=== PATIENT | female | born 1945 | race Caucasian/White ===

== ENCOUNTER 2017-02-01 13:09 | Outpatient (CLI) | payer MEDICARE, BC ==
[~2017-02-01] VITALS: Ht 172.7 cm; Wt 75.0 kg
[~2017-02-01 13:09] MED LIST: ASPIRIN 32325 MG/TAB PO; ASPIRIN E.C. 8181 MG PO; BYSTOLIC5 MG PO; CALCIUM1 CAP PO; CALCIUM300 MG PO; CARDIZEM CD 24240 MG PO; CARDIZEM LA120 MG PO; CARDIZEM120 MG PO; CENTRUM SILVER1 CTB PO; LOPRESSOR 225 MG/TAB PO; MALOXICAM; METROGEL GEL45 GM TP; MOBIC 7.5MG7.5 MG PO; MULTI VITAMINS1 TAB PO; NORCO 325 MG-51 TAB PO; TAMBOCOR150 MG PO; TRAVATAN Z 5 ML5 ML OU; VITAMIN C500 MG PO; VITAMIN E100 I3 PO
[2017-02-01 13:51] LABS: HEMATOCRIT 35.4 % (37.0-47.0); HEMOGLOBIN 12.1 g/dl (12.5-16.0); MEAN CELL VOLUME 95 fl (80.0-100.0); MEAN CORPUSCULAR HEMOGLOBIN 32 pg (27.0-31.0); MEAN CORPUSCULAR HGB CONC 34 g/dl (33.0-37.0); MEAN PLATELET VOLUME 8.8 fl (7.4-10.4); PLATELET COUNT 205 K/mm3 (130-400); RED BLOOD COUNT 3.74 M/mm3 (4.10-5.30); REDCELL DISTRIBUTION WIDTH-CV 12.1 % (11.5-14.5)
[2017-02-01 13:55] VITALS: BP 133/53; PULSE 72; TEMP 98.1
[2017-02-01] MEDS ORDERED: CALTRATE-600 W600 MG PO (14:26)
[2017-02-01] MEDS ORDERED: FISH OIL 500 M1 EAC1 PO (14:27)
[2017-02-01] MEDS ORDERED: ASPIRIN 32325 MG/TAB PO (14:28)
[2017-02-01] MEDS ORDERED: RYTHMOL300 MG PO (14:29)
[2017-02-01 15:54] VITALS: BP 137/65; PULSE 67
== END 2017-02-01 15:55 | disposition home or self-care (01) ==
LOC: COL.CAR 13:09
PROVIDERS: Internal Medicine Interventional Cardiology
DX: I48.91 Unspecified atrial fibrillation (principal); R00.2 Palpitations
CPT/HCPCS: C1764

== ENCOUNTER → 2017-07-15 | Outpatient (CLI) | payer MEDICARE, BC ==
[~2017-07-15] MED LIST changes: +CALTRATE-600 W600 MG PO; +FISH OIL 500 M1 EAC1 PO; +RYTHMOL300 MG PO
== END ==
LOC: MC.RAD 14:12
DX: Z12.31 Encounter for screening mammogram for malignant neoplasm of breast (principal)

== ENCOUNTER 2017-10-17 21:38 | Emergency (ER) | payer MEDICARE, BC ==
[~2017-10-17] VITALS: Ht 172.7 cm; Wt 77.3 kg
[2017-10-17 21:40] VITALS: TEMP 98.6
[2017-10-17 23:03] LABS: BASO % 0.1 % (0.0-2.0); EOS # 0.1 (0.0-0.7); GRAN # 7.2 (1.4-6.5); GRAN % 78.5 % (42.2-75.2); HEMATOCRIT 37.8 % (37.0-47.0); HEMOGLOBIN 13.1 g/dl (12.5-16.0); LYMPH # 1.4 (1.2-3.4); LYMPH % 15.1 % (20.0-51.0); MEAN CELL VOLUME 95 fl (80.0-100.0); MEAN CORPUSCULAR HEMOGLOBIN 33 pg (27.0-31.0); MEAN CORPUSCULAR HGB CONC 35 g/dl (33.0-37.0); MEAN PLATELET VOLUME 8.7 fl (7.4-10.4); MONO # 0.5 (0.1-0.6); MONO % 5.1 % (1.7-9.3); PLATELET COUNT 257 K/mm3 (130-400); RED BLOOD COUNT 3.98 M/mm3 (4.10-5.30); REDCELL DISTRIBUTION WIDTH-CV 12.2 % (11.5-14.5)
[2017-10-17 23:09] LABS: INR 1.3 (0.8-3.0); PROTHROMBIN TIME 15.3 SECONDS (9.7-12.8)
[2017-10-17 23:12] LABS: PARTIAL THROMBOPLASTIN TIME 31.4 SECONDS (26.0-37.0)
[2017-10-17 23:19] LABS: ALBUMIN 4.3 gm/dL (3.5-5.0); BILIRUBIN,TOTAL 0.5 mg/dL (0.0-1.0); CALCIUM 8.9 mg/dL (8.4-10.2); CREATININE, serum 0.81 mg/dL (0.52-1.25); MAGNESIUM 2.4 mg/dL (1.6-2.3); PHOSPHOROUS 3.6 mg/dL (2.5-4.5); POTASSIUM 4.2 mmol/L (3.4-5.0)
[2017-10-18 00:20] VITALS: BP 117/59; PULSE 64
== END 2017-10-18 00:20 | disposition home or self-care (01) ==
LOC: COL.ER 21:38
PROVIDERS: Emergency Medicine
DX: I48.91 Unspecified atrial fibrillation (principal); Z79.82 Long term (current) use of aspirin

== ENCOUNTER 2017-10-26 19:05 | Observation (INO) | payer MEDICARE, BC ==
[~2017-10-26] VITALS: Ht 172.7 cm; Wt 77.3 kg
[2017-10-26 19:34] LABS: BASO % 0.2 % (0.0-2.0); EOS # 0.1 (0.0-0.7); EOS % 1.5 % (0-4.0); GRAN # 3.6 (1.4-6.5); GRAN % 66.6 % (42.2-75.2); HEMATOCRIT 36.4 % (37.0-47.0); HEMOGLOBIN 12.6 g/dl (12.5-16.0); LYMPH # 1.4 (1.2-3.4); LYMPH % 25.4 % (20.0-51.0); MEAN CELL VOLUME 96 fl (80.0-100.0); MEAN CORPUSCULAR HEMOGLOBIN 33 pg (27.0-31.0); MEAN CORPUSCULAR HGB CONC 35 g/dl (33.0-37.0); MEAN PLATELET VOLUME 8.6 fl (7.4-10.4); MONO # 0.3 (0.1-0.6); MONO % 5.9 % (1.7-9.3); PLATELET COUNT 244 K/mm3 (130-400); REDCELL DISTRIBUTION WIDTH-CV 12.6 % (11.5-14.5)
[2017-10-26 19:37] LABS: INR 1.2 (0.8-3.0); PROTHROMBIN TIME 13.4 SECONDS (9.7-12.8)
[2017-10-26 19:43] LABS: ALANINE AMINOTRANSFERASE 36 U/L (9-52); ALKALINE PHOSPHATASE 94 U/L (50-136); ANION GAP 14 mmol/L (7-16); AST,SGOT 19 U/L (15-37); BILIRUBIN,TOTAL 0.4 mg/dL (0.0-1.0); BLOOD UREA NITROGEN 26 mg/dL (7-17); CARBON DIOXIDE 22 mmol/L (22-30); CHLORIDE 105 mmol/L (98-107); GLUCOSE 104 mg/dL (74-106); POTASSIUM 3.9 mmol/L (3.4-5.0); SODIUM 141 mmol/L (137-145); TOTAL PROTEIN 6.8 gm/dL (6.4-8.2)
[2017-10-26 19:56] LABS: TROPONIN-I < 0.012 ng/mL (0.000-0.034)
[2017-10-26] MEDS ORDERED: ELIQUIS 5MG PO (21:09)
[2017-10-26] MEDS ORDERED: PROTONIX20 MG (21:14)
[2017-10-26] MEDS ORDERED: CARAFATE 1GM1 G (21:16)
[2017-10-26 21:31] VITALS: BP 132/59; PULSE 84; TEMP 98.3
[2017-10-26 21:35] VITALS: BP 132/59; PULSE 84; TEMP 98.3
[2017-10-26 23:33] VITALS: BP 115/42; PULSE 86; TEMP 98.3
[2017-10-27 04:31] VITALS: BP 130/58; PULSE 87; TEMP 98.2
[2017-10-27 11:32] VITALS: BP 111/59; PULSE 83; TEMP 98.2
[2017-10-27 15:25] VITALS: BP 113/50; PULSE 80; TEMP 97.8
[2017-10-27 19:35] VITALS: BP 110/47; PULSE 82; TEMP 97.5
[2017-10-28 00:17] VITALS: BP 124/63; PULSE 81; TEMP 97.4
[2017-10-28 04:35] VITALS: BP 119/51; PULSE 80; TEMP 97.5
[2017-10-28 07:55] VITALS: BP 115/55; PULSE 81; TEMP 97.9
== END 2017-10-28 11:00 | disposition home or self-care (01) ==
LOC: COL.ER 19:05 → MEDICAL 19:59
PROVIDERS: Emergency Medicine
DX: I49.5 Sick sinus syndrome (principal); I48.0 Paroxysmal atrial fibrillation; I47.1 Supraventricular tachycardia; Z79.01 Long term (current) use of anticoagulants; Z88.6 Allergy status to analgesic agent; Z88.8 Allergy status to other drugs, medicaments and biological substances
CPT/HCPCS: C1785; C1894; C1898; G0378; J0690; J2250; J3010; J7030

== ENCOUNTER → 2018-01-04 | Outpatient (CLI) | payer MEDICARE, BC ==
[~2018-01-04] MED LIST changes: +CARAFATE 1GM1 G; +ELIQUIS 5MG PO; +PROTONIX20 MG
== END ==
LOC: COL.PUL 12:57
DX: I48.0 Paroxysmal atrial fibrillation (principal); Z79.899 Other long term (current) drug therapy

== ENCOUNTER 2018-05-01 13:15 | Emergency (ER) | payer MEDICARE, BC ==
[~2018-05-01] VITALS: Ht 172.7 cm; Wt 72.3 kg
[2018-05-01 13:29] VITALS: TEMP 98.5
[2018-05-01 14:49] VITALS: BP 119/61; PULSE 72
== END 2018-05-01 14:56 | disposition home or self-care (01) ==
LOC: COL.ER 13:15
DX: S40.022A Contusion of left upper arm, initial encounter (principal); S00.83XA Contusion of other part of head, initial encounter; S80.212A Abrasion, left knee, initial encounter; S00.81XA Abrasion of other part of head, initial encounter; I48.91 Unspecified atrial fibrillation; Z95.0 Presence of cardiac pacemaker; Z79.01 Long term (current) use of anticoagulants; W01.0XXA Fall on same level from slipping, tripping and stumbling without subsequent striking against object, initial encounter

== ENCOUNTER → 2018-10-02 | Outpatient (CLI) | payer MEDICARE, BC | LOC: MC.RAD 11:40 | DX: Z12.31 Encounter for screening mammogram for malignant neoplasm of breast (principal) ==

== ENCOUNTER 2019-01-12 08:45 | Outpatient (RCR) | payer MEDICARE, BC | END 2019-02-06 | LOC: WSPT | DX: M25.561 Pain in right knee (principal); G89.29 Other chronic pain ==

== ENCOUNTER 2019-02-19 08:00 | Outpatient (RCR) | payer MEDICARE, BC | END 2019-05-22 | disposition still patient (30) | LOC: WSPT | DX: M25.561 Pain in right knee (principal) ==

== ENCOUNTER → 2019-10-09 | Outpatient (CLI) | payer MEDICARE, BC | LOC: MC.RAD 10:07 | DX: Z12.31 Encounter for screening mammogram for malignant neoplasm of breast (principal); Z95.0 Presence of cardiac pacemaker ==

== ENCOUNTER → 2020-11-12 | Outpatient (CLI) | payer MEDICARE, BC | LOC: MC.RAD 14:05 | DX: Z12.31 Encounter for screening mammogram for malignant neoplasm of breast (principal); Z95.0 Presence of cardiac pacemaker ==

== ENCOUNTER 2021-07-29 21:41 | Day surgery (SDC) | payer MEDICARE, BC ==
[~2021-07-29] VITALS: Ht 172.7 cm; Wt 75.0 kg
[~2021-07-29 21:41] MED LIST changes: +CARDIZEM CD 12120 MG PO; -CARDIZEM CD 24240 MG PO
[2021-07-29 22:41] LABS: BASO % 0.2 % (0.0-2.0); EOS # 0.1 K/mm3 (0.0-0.7); GRAN # 3.9 K/mm3 (1.4-6.5); HEMATOCRIT 37.8 % (37.0-47.0); HEMOGLOBIN 12.8 g/dl (12.5-16.0); LYMPH # 0.8 K/mm3 (1.2-3.4); LYMPH % 15.7 % (20.0-51.0); MEAN CELL VOLUME 92 fl (80.0-100.0); MEAN CORPUSCULAR HEMOGLOBIN 31 pg (27-31); MEAN CORPUSCULAR HGB CONC 34 g/dl (33.0-37.0); MEAN PLATELET VOLUME 9.2 fl (7.4-10.4); MONO # 0.3 K/mm3 (0.1-0.6); MONO % 5.7 % (1.7-9.3); PLATELET COUNT 211 K/mm3 (130-400); RED BLOOD COUNT 4.11 M/mm3 (4.10-5.30); REDCELL DISTRIBUTION WIDTH-CV 12.8 % (11.5-14.5)
[2021-07-29 22:57] LABS: ALANINE AMINOTRANSFERASE 18 U/L (0-55); ALBUMIN 4.1 gm/dL (3.4-4.8); ALKALINE PHOSPHATASE 85 U/L (40-150); ANION GAP 15 mmol/L (7-16); AST,SGOT 27 U/L (5-34); BILIRUBIN,TOTAL 0.6 mg/dL (0.2-1.2); BLOOD UREA NITROGEN 21 mg/dL (10-20); CALCIUM 9.1 mg/dL (8.4-10.2); CARBON DIOXIDE 19 mmol/L (23-31); CHLORIDE 108 mmol/L (98-107); CREATININE, serum 0.79 mg/dL (0.57-1.11); GLUCOSE 114 mg/dL (70-99); LIPASE 18 U/L (8-78); POTASSIUM 4.2 mmol/L (3.5-4.5); SODIUM 142 mmol/L (136-145); TOTAL PROTEIN 6.9 gm/dL (6.2-8.1)
[2021-07-29 23:03] LABS: TROPONIN-I < 0.010 ng/mL (0.00-0.033)
[2021-07-30] MEDS ORDERED: SYNTHROID0.05 MG/TA PO (08:23)
[2021-07-30] MEDS ORDERED: LYRICA 50MG CAP50 MG PO (08:23)
[2021-07-30 11:10] VITALS: BP 105/83; PULSE 78; TEMP 98
[2021-07-30 11:25] VITALS: BP 134/94; PULSE 83
[2021-07-30 11:40] VITALS: BP 119/46; PULSE 64
[2021-07-30 11:45] VITALS: BP 112/54; PULSE 69
--- NOTE | 2021-07-30 12:28 | NUR ---
1110 PATIENT ARRIVES TO [facility] 1 VIA CART. VSS. REPORT AND CARE OF PATIENT RECEIVED FROM ALEXIA HERRERA. PATIENT'S BRPOUGHT BACK TO [place]. PATIENT REQUESTED GRAPE JUICE AND JELLO. 1125 PATIENT TOLERATED PO WELL. DENIES COMPLAINT. REPORTS THAT SORE THROAT IS IMPROVING. DENIES COMPLAINT. VSS. 1140 PATIENT ALERT. DENIES COMPLAINT. PATIENT INSTRUCTIONS AND DISCHARGE INSTRUCTIONS GIVEN TO PATIENT AND PATIENT'S SPOUSE IN WRITING AND VERBALLY. BOTH VERBALIZED UNDERSTANDING. QUESTIONS INVITED AND ANSWERED. 1145 IV TO R AC D/C'D. TOLERATED WELL. CATH INTACT. 1207 PATIENT DISCHARGED. TO POV VIA WHEELCHAIR WITH SPOUSE.
[2021-08-03] MEDS ORDERED: PRILOSEC 20MG20 MG PO (14:09)
== END 2021-07-30 12:32 | disposition home or self-care (01) ==
LOC: COL.ER 21:41 → SDCO 07-30 12:31
PROVIDERS: Emergency Medicine
DX: T18.128A Food in esophagus causing other injury, initial encounter (principal); I48.91 Unspecified atrial fibrillation; I47.1 Supraventricular tachycardia; Z79.890 Hormone replacement therapy; Z79.899 Other long term (current) drug therapy; Z79.01 Long term (current) use of anticoagulants
CPT/HCPCS: J0330; J2060; J2405; J2704; J3010; J7030

== ENCOUNTER → 2021-08-12 | Outpatient (CLI) | payer MEDICARE, BC ==
[~2021-08-12] MED LIST changes: +LYRICA 50MG CAP50 MG PO; +PRILOSEC 20MG20 MG PO; +SYNTHROID0.05 MG/TA PO
== END ==
LOC: COL.RAD 08-10 08:00
DX: K21.9 Gastro-esophageal reflux disease without esophagitis (principal)

== ENCOUNTER → 2021-12-01 | Outpatient (CLI) | payer MEDICARE, BC | LOC: MC.RAD 09:07 | DX: Z12.31 Encounter for screening mammogram for malignant neoplasm of breast (principal) ==

== ENCOUNTER → 2023-01-05 | Outpatient (CLI) | payer MEDICARE, BC | LOC: MC.RAD 10:16 | DX: Z12.31 Encounter for screening mammogram for malignant neoplasm of breast (principal) ==

== ENCOUNTER → 2023-07-20 | Outpatient (CLI) | payer MEDICARE, BC ==
[2023-07-20 15:54] LABS: CALCIUM 9.2 mg/dL (8.4-10.2); CREATININE, serum 0.88 mg/dL (0.57-1.11)
== END ==
LOC: COL.LAB 15:02
PROVIDERS: Nurse Practitioner
DX: Z51.81 Encounter for therapeutic drug level monitoring (principal)

== ENCOUNTER → 2024-01-25 | Outpatient (CLI) | payer MEDICARE, BC | LOC: MC.RAD 09:32 | DX: Z12.31 Encounter for screening mammogram for malignant neoplasm of breast (principal); N63.10 Unspecified lump in the right breast, unspecified quadrant ==